=== PATIENT | female | born 1980 | race Two or more races ===

== ENCOUNTER 2025-03-17 13:03 | Emergency (ER) | payer OTHER ==
[~2025-03-17] VITALS: Ht 175.3 cm; Wt 140.0 kg
--- OUTSIDE RECORDS SUMMARY | 2025-03-17 13:07 | XMS ---
PreManage Notification: [place] [employer] Operator Events No recent Security Events currently on file CRITERIA MET - 6 ED Visits in 6 Months - [facility] - 2 Visits in 30 Days CARE PROVIDERS -, [facility] Dentist: [employer] [facility] PHONE: [phone] KOLE NEGRETE [facility]/Center: [facility] [place] PHONE: [phone] [place] JONES [facility] PHONE: [phone] [place] has no Care Guidelines for this patient. E.D. VISIT COUNT (12 MO.) 20 Kole Asher ([facility] ) 1 MATTEO MunsonBrandie TOTAL 21 NOTE: Visits indicate total known visits. ED/UCC VISIT TRACKING (12 MO.) 03/17/2025 13:03 MATTEO Daugherty TYPE: Emergency COMPLAINT: - HEADACHE 02/23/2025 13:37 Kole [facility] ([facility]) TYPE: Emergency DIAGNOSES: - Lumbago with sciatica, right side - Sacrococcygeal disorders, not elsewhere classified - Arm Weakness/ Numbness - Back Pain 02/17/2025 14:52 Kole [facility] ([facility]) TYPE: Emergency DIAGNOSES: - Contusion of lower back and pelvis, initial encounter - Fall - fall down stairs 02/09/2025 09:35 Kole [facility] [place] ([facility]) TYPE: Emergency DIAGNOSES: - Diarrhea, unspecified - Generalized abdominal pain - Unspecified abdominal pain - Abdominal Pain - Back pain 02/07/2025 14:16 Kole [facility] ([facility]) TYPE: Emergency DIAGNOSES: - Viral intestinal infection, unspecified - Abdominal/Groin Pain - Diarrhea (Adult) 12/28/2024 13:37 Kole [facility] ([facility]) TYPE: Emergency DIAGNOSES: - Contusion of right front wall of thorax, initial encounter - Unspecified fall, initial encounter - Fall - Nausea; Possible Seizure - Nausea; Seizure 12/26/2024 16:02 Kole [facility] ([facility]) TYPE: Emergency DIAGNOSES: - Acute suppurative otitis media without spontaneous rupture of ear drum, left ear - Tension-type headache, unspecified, not intractable - Headache (Adult - New Onset Or New Symptoms) - Slurred Speech; swelling behind ear 12/20/2024 13:45 Kole [facility] ([facility]) TYPE: Emergency DIAGNOSES: - Patient's other noncompliance with medication regimen for other reason - Unspecified convulsions - Emesis - Seizure (Adult - Prior Hx Of) 12/01/2024 13:55 Kole [facility] ([facility]) TYPE: Emergency DIAGNOSES: - Anemia, unspecified - Epilepsy, unspecified, not intractable, without status epilepticus - Other muscle spasm - seizure - Seizure (Adult - Prior Hx Of) 11/14/2024 12:13 Kole Tedduong GiselaBrandie [place] [facility] ([facility] ) TYPE: Emergency DIAGNOSES: - Abnormal findings on diagnostic imaging of other specified body structures - Contusion of scalp, initial encounter - Epilepsy, unspecified, not intractable, without status epilepticus - Strain of muscle, fascia and tendon at neck level, initial encounter - Fall 10/13/2024 13:21 Kole Jeanduong GiselaBrandie [place] [facility]AR[facility] ([facility] ) TYPE: Emergency DIAGNOSES: - Generalized idiopathic epilepsy and epileptic syndromes, not intractable, without status epilepticus - Unspecified convulsions - Possible Seizure - Weakness, Seizure 10/11/2024 12:38 Kole HigginsBrandie [place] SHAR[facility] ([facility]) TYPE: Emergency DIAGNOSES: - Fall on same level, unspecified, initial encounter - Migraine, unspecified, not intractable, without status migrainosus - Pain in left shoulder - Unspecified convulsions - Headache - Headache (Adult - Recurrent Or Known Dx Migraines) 09/13/2024 15:04 Kole [facility] ([facility]) TYPE: Emergency DIAGNOSES: - Acute kidney failure, unspecified - Unspecified abdominal pain - Abdominal pain - Flank Pain 08/13/2024 16:01 Kole [facility] ([facility]) TYPE: Emergency DIAGNOSES: - Other general symptoms and signs - Neck Swelling - Throat Swelling 08/12/2024 10:59 Kole [facility] ([facility]) TYPE: Emergency DIAGNOSES: - Adverse effect of diagnostic agents, initial encounter - Episodic tension-type headache, not intractable - Hematemesis - Right lower quadrant pain - Emesis - Vomiting Blood, Headache 07/18/2024 10:44 Kole [facility] ([facility]) TYPE: Emergency DIAGNOSES: - Unspecified abdominal pain - Flank Pain 05/19/2024 12:26 Kole Don [facility] ([facility]) TYPE: Emergency DIAGNOSES: - Nausea - Tubulo-interstitial nephritis, not specified as acute or chronic - Unspecified abdominal pain - Abdominal Pain - Abdominal Pain; Nausea 05/01/2024 10:42 Kole [facility] ([facility]) TYPE: Emergency DIAGNOSES: - Chronic pain syndrome - Nausea with vomiting, unspecified - Flank Pain - Pain 04/30/2024 15:07 Kole [facility] ([facility]) TYPE: Emergency DIAGNOSES: - Unspecified abdominal pain - Abdominal Pain 04/20/2024 14:01 Kole VO ([facility]) TYPE: Emergency DIAGNOSES: - Abnormal radiologic findings on diagnostic imaging of unspecified kidney - Unspecified abdominal pain - Abdominal Pain - Nausea Plus 1 More Visit INPATIENT VISIT TRACKING (12 MO.) No inpatient visits to display in this time frame [email or web address]
[2025-03-17] MEDS ORDERED: DEPAKOTE500 MG (13:29)
[2025-03-17] MEDS ORDERED: ATIVAN0.5 MG (13:31)
[2025-03-17] MEDS ORDERED: SEROQUEL400 MG PO (13:31)
[2025-03-17] MEDS ORDERED: PROCHLORPERAZINE EDISYLATE 10 MG/2 ML VIAL IM ONE (15:00)
[2025-03-17 15:40] VITALS: BP 125/82
== END 2025-03-17 15:39 | disposition home or self-care (01) ==
LOC: ED 13:03
DX: R51.9 Headache, unspecified (principal); Z79.899 Other long term (current) drug therapy; Z88.0 Allergy status to penicillin; Z88.2 Allergy status to sulfonamides; Z88.6 Allergy status to analgesic agent; Z88.5 Allergy status to narcotic agent
CPT/HCPCS: 96372; 99283; J0780; J1200; J1790